=== PATIENT | male | born 1970 | race Caucasian/White ===

== ENCOUNTER 2017-07-21 08:26 | Day surgery (SDC) | payer SELFPAY ==
--- NOTE | 2017-07-21 | COLBX_PTH ---
PATIENT: SARA DELUNA LOC: EN U#:[id number] AGE/SX: 47/M ROOM: RE07/21/[address]: Dr. Iftikhar Cantu MD : 1970 BED: DIS: 07/21/2017 SPEC #: [id number] RECD: 07/21/17 13:57 STATUS: JESSICA KITCHENPhill #: [id number] JANELL: 07/21/17 00:[address]: Iftikhar Cantu DEPT: SURGICAL PATHOLOGY RECD BY: Milo Rivera ENTERED: 07/21/17 13:57 SP TYPE: COLON BX OTHR DR: MD Dr. Angelo Murray DO Tissues: Rectum, NOS Procedures: Surgery Specimen Level IV HEADER OPERATION: Colonoscopy PRE-OP DIAGNOSIS: Family history colon polyps TISSUE SUBMITTED: Rectal polyp MICROSCOPIC DIAGNOSIS Rectal polyp, biopsy: Tubulovillous adenoma. SJ:vandana 5/7/18 MICROSCOPIC DESCRIPTION Slides are reviewed. GROSS DESCRIPTION Received in fixative is one container labeled with the patient's name and designated rectal polyp. The specimen consists of a piece of holden-pink polyp measuring 0.5 x 0.5 x 0.3 cm. The specimen is totally submitted in one cassette. / SJ:rg 07/21/17 TC:1 CPT: 70371
[2017-07-21 08:50] VITALS: BP 125/73; PULSE 60; RESP 16; TEMP 36.7; O2SAT 100; BMI 28.4
[2017-07-21 09:53] VITALS: BP 125/73; BP 87/54; PULSE 66; RESP 16; TEMP 36.4; O2SAT 97
--- NOTE | 2017-07-21 09:55 | H&P.OPEN ---
Past Medical/Surgical History - Planned Operation Planned Operative Procedure/s: colonoscopy - Previous Hospitalizations/Surgeries HX Hospitalizations: No HX of Surgeries: right ear surgery Any Problems With Anesthesia: No You/Your Family Experience Fever (Hyperthermia) With Anes: No Cholinesterase deficiency: No - Cardiovascular Hx Chest Pain within Last 2 months: No Hx of Irregular Heartbeat and/or Afib: No Hx Heart Attack: No Hx Congestive Heart Failure: No Hx Rheumatic Fever: No Hx Hypertension: No Hx Internal Defibrillator: No Hx Pacemaker: No Hx Cardiac Catheterization: No Hx Cardiac Surgery/Stents/Etc.: No Hx Stress Test: No HX Edema: No Hx Pain in Legs when Walking/Leg Cramps: No - Respiratory Chronic Cough: No HX of Shortness of Breath: No Hoarseness: No Hx Chronic Obstructive Pulmonary Disease (COPD): No Hx Asthma: No Hx Emphysema: No Hx Sleep Apnea: No Hx Oxygen Use at Home: No Hx Respiratory Tract Infection/Cold (presently): No Do You Snore Loudly (louder than talking or can be heard): No Do You Often Feel Tired/ Fatigued/ Sleepy Dring Daytime?: No Has Anyone Observed You Stop Breathing During Sleep?: No Result (for STOP score): Negative Hx Smoking: Yes - quit 15 yrs ago Smoking Status: Former smoker - Gastrointestinal Hx Gastroesophageal Reflux: No Hx Gastrointestinal Disorders: No Hx Gastrointestinal Bleed: No Hx Ulcer: No Hx Hiatal Hernia: No Difficulty Chewing/Swallowing: No Recent Onset of Swallowing Problems: No Special diet followed at home: No Hx Unplanned Weight Loss of 20#: No HX Unplanned Weight Gain of 20#: No - Neurological Hx Seizures: No HX Syncope/Blackout Spells/Unconsciousness: No Hx CVA/Stroke: No Hx Transient Ischemic Attacks (TIA): No Hx Multiple Sclerosis: No Hx Parkinson's Disease: No Hx Head/Neck Injury: No Hx Headaches: No Hx Back Injury/Pain: No Recent Onset of Speech Difficulty: No Restless Legs: No Does patient have nerve stimulator: No Patient instructed to have device shut off: No Rep notified?: No - Blood Disorder Hx Leukemia: No Bleeding Tendencies: No Hx Deep Vein Thrombosis: No Hx High Cholesterol: No Blood Transmitted Disease: No Hx Hepatitis: No Hx Cirrhosis: No Hx Anemia: No Hx Blood Disorders: No - Genitourinary Hx Renal Disease: No - Musculoskeletal Hx Arthritis: No Hx Rheumatoid Arthritis: No Hx Gout: No Recent Onset of an Orthopedic Problem: No - Endocrine Hx Diabetes: No Thyroid Disease: No Hx Steroid Therapy: No - Psycho/Social Hx Substance Use: No Hx Alcohol Use: No Hx Anxiety: No Hx Depression: No Mental Illness: No Hx Dementia: No - Miscellaneous Hx Cancer: No Recent Exposure to Contagious Disease: No Active MRSA: No Hx of C-Diff: No Any Loose Teeth: No Allergies No Known Allergies Allergy (Verified 07/17/17 09:32) Home Medications Medication Instructions Recorded NK [NK] 07/17/17 - Discharge Is Pt Admitted From a Penitentiary, or a Correction: No Who Could Help: family After D/C, Where Do you Plan to Go: Return Home - Physical Exam General: Alert, Oriented x3, Cooperative, No apparent distress Lungs: Normal air movement Cardiovascular: Regular rate, Regular Rhythm Abdomen: Soft, Non Tender, Non-Distended Vital Signs Temp Pulse Resp BP Pulse Ox 98.0 F 60 16 125/73 H 100 07/21/17 08:50 07/21/17 08:50 07/21/17 08:50 07/21/17 08:50 07/21/17 08:50 Oxygen Delivery Method Room Air Weight: 181 lb 7.047 oz Body Mass Index (BMI) 28.4 Assessment/Plan 47-year-old male for screening colonoscopy due to history of polyps 1. Patient reports no abdominal pain or blood in his stools. He reports his last colonoscopy was 3 years ago and in [place] he gets screening colonoscopies every 3 years due to family history of polyps. 2. I explained endoscopy in detail to the patient. I explained the risks including but not limited to stroke or heart attack with anesthesia, perforation of the GI tract, bleeding, infection. I explained that any of these could necessitate further emergency surgery. The patient understands and all questions were answered sufficiently. The patient wishes to proceed with procedure. Surgery Risks - Colonoscopy Risks Include but are not Limited To: Risks include but are not limited to: Bleeding, perforation requiring further surgery, inability to complete colonoscopy requiring barium enema.
--- NOTE | 2017-07-21 09:56 | PCM.OPRPT ---
Problem List (1) Family hx colonic polyps Status: Acute Report of Operation Date of Procedure: 07/21/17 Pre-Operative Diagnosis: Family history of colon polyps Post-Operative Diagnosis: Rectal polyp. Diverticulosis Surgery/Procedure Performed:: Colonoscopy with snare polypectomy Specimen's removed: Rectal polyp Description of Procedure: The major risks and benefits associated with the procedure were explained to the patient in detail. The patient verbalized understanding and agreement with the same. The patient was brought to the endoscopy suite. After adequate sedation was achieved, the patient was placed in the left lateral decubitus position and a digital rectal exam was performed. This examination was within normal limits. A well-lubricated colonoscope was then inserted into the rectum and advanced under direct visualization to the level of the cecum. The bowel prep was good. The cecum was identified by both visual and anatomic landmarks. A photograph was taken of the end of the cecum. The scope was then fully withdrawn while examining the color, texture, anatomy and integrity of the mucosa from the cecum to the anal canal. The findings were consistent with normal colonic mucosa. Patient did have diverticulosis of the sigmoid colon. Over 6 minutes were taken to examine the colonic mucosa. Upon reaching the rectum the scope was retroflexed to examine the distal rectal vault. The patient had a small polyp in the distal rectum. This was removed with cautery snare. Hemostasis was good. The scope was then straightened and was completely retrieved upon exiting the anal canal and the procedure was terminated. The patient was then transferred to the recovery room in stable condition. Recommendations for follow up: Dependent on pathology
[2017-07-21 10:00] VITALS: BP 125/73; BP 86/56; PULSE 60; RESP 16; O2SAT 95
[2017-07-21 10:05] VITALS: BP 125/73; BP 88/62; PULSE 62; RESP 16; O2SAT 96
[2017-07-21 10:12] VITALS: BP 101/69; BP 125/73; PULSE 56; RESP 16; TEMP 36.5; O2SAT 100
[2017-07-21 10:30] VITALS: BP 125/73
== END 2017-07-21 10:30 | disposition home or self-care (01) ==
LOC: EN 08:33 → AC 08:34
PROVIDERS: Family Provider Family Medicine; PCP Family Medicine; Visit Provider Surgery
PROC: 0DJD8ZZ Inspection of Lower Intestinal Tract, Via Natural or Artificial Opening Endoscopic (ICD-10-PCS; CPT 45378; principal; 2017-07-21 09:25)
DX: Z12.11 Encounter for screening for malignant neoplasm of colon (principal); D12.8 Benign neoplasm of rectum; K57.30 Diverticulosis of large intestine without perforation or abscess without bleeding; Z83.71 Family history of colonic polyps; Z87.891 Personal history of nicotine dependence
CPT/HCPCS: 45380; 88305; J7120